=== PATIENT | male | born 1955 | race Caucasian/White ===

== ENCOUNTER 2022-07-07 12:02 | Emergency (ER) | payer BC ==
[2022-07-07 12:08] VITALS: TEMP 98.6
[2022-07-07] MEDS ORDERED: HYDROmorphone 0.5 MG/0.5 ML SYRINGE IVP STA ×2 (12:19→13:01)
[2022-07-07] MEDS ORDERED: SODIUM CHLORIDE 0.9% 1,000 ML IV STA (12:19)
[2022-07-07] MEDS ORDERED: KETOROLAC 15 MG/ML 1 ML VIAL IVP STA (12:20)
[2022-07-07] MEDS ORDERED: ONDANSETRON 4 MG/2 ML VIAL IVP STA (12:29)
[2022-07-07 12:34] LABS: Basophils % (A) 0 %; Eosinophils % (A) 0 %; HCT 48.4 % (39.0-53.0); Lymphocytes # (A) 1.7 k/uL (1.0-4.8); Lymphocytes % (A) 17 %; MCH 30.6 pg (25.0-35.0); MCV 87.3 fL (80.0-100.0); Mean Platelet Volume 8.7; Monocytes # (A) 0.4 k/uL (0-1.0); Monocytes % (A) 4 %; Neutrophils # (A) 7.9 k/uL (1.3-7.7); Neutrophils % (A) 78 %; Platelet Count 198 k/uL (150-450); RBC 5.55 m/uL (4.30-5.90); RDW 12.7 % (11.5-15.5); WBC 10.1 k/uL (3.8-10.6)
[2022-07-07 12:58] LABS: Calcium 9.2 mg/dL (8.4-10.2); Total Bilirubin 1.9 mg/dL (0.2-1.3); Total Protein 8.3 g/dL (6.3-8.2)
[2022-07-07 13:02] VITALS: RESP 18
--- NOTE | 2022-07-07 13:08 | ED ---
General Adult HPI - General Chief complaint: Abdominal Pain Stated complaint: Abd Pain Time Seen by Provider: 07/07/22 12:15 Source: patient, RN notes reviewed, old records reviewed Mode of arrival: ambulatory Limitations: no limitations - History of Present Illness Initial comments: This is a 67-year-old male presents emergency Department complaining of right- sided abdominal pain. Patient states more in the lower right than the upper right. Patient states she's had 4 days pain. Patient states yesterday he about 6 hour period where there didn't feel like there was much pain at all. Patient states she's been very nauseated has vomited. Patient denies any diarrhea. Patient denies any fever chills. Patient denies any chest pain difficulty br eathing shortness of breath per patient denies any back pain. Patient denies any dysuria hematuria urinary frequency. Patient denies headache patient denies numbness weakness. Patient states the car ride over was painful when he hit bumps. - Related Data Previous Rx's Medication Instructions Recorded Ketorolac [Toradol] 10 mg PO Q6HR #15 tab 07/07/22 Tamsulosin [Flomax] 0.4 mg PO DAILY #10 cap 07/07/22 Allergies Allergy/AdvReac Type Severity Reaction Status Date / Time No Known Allergies Allergy Verified 07/07/22 12:08 Review of Systems ROS Statement: Those systems with pertinent positive or pertinent negative responses have been documented in the HPI. ROS Other: All systems not noted in ROS Statement are negative. Past Medical History Past Medical History: No Reported History History of Any Multi-Drug Resistant Organisms: None Reported Past Surgical History: No Surgical Hx Reported Past Psychological History: No Psychological Hx Reported Smoking Status: Current every day smoker Past Alcohol Use History: Occasional Past Drug Use History: None Reported General Exam - General Exam Comments Initial Comments: GENERAL: Patient is well-developed and well-nourished. Patient is nontoxic and well- hydrated and is in moderate distress. ENT: Neck is soft and supple. No significant lymphadenopathy is noted. Oropharynx is clear. Moist mucous membranes. Neck has full range of motion without eliciting any pain. EYES: The sclera were anicteric and conjunctiva were pink and moist. Extraocular movements were intact and pupils were equal round and reactive to light. Eyelids were unremarkable. PULMONARY: Unlabored respirations. Good breath sounds bilaterally. No audible rales rhonchi or wheezing was noted. CARDIOVASCULAR: There is a regular rate and rhythm without any murmurs gallops or rubs. ABDOMEN: Patient has significant tenderness and right lower quadrant and has having rebound SKIN: Skin is clear with no lesions or rashes and otherwise unremarkable. NEUROLOGIC: Patient is alert and oriented x3. Cranial nerves II through XII are grossly intact. Motor and sensory are also intact. Normal speech, volume and content. Symmetrical smile. MUSCULOSKELETAL: Normal extremities with adequate strength and full range of motion. LYMPHATICS: No significant lymphadenopathy is noted PSYCHIATRIC: Normal psychiatric evaluation. Limitations: no limitations Course Vital Signs 07/07/22 07/07/22 12:06 13:02 Temperature 98.6 F Pulse Rate 83 90 Respiratory 20 18 Rate Blood Pressure 184/102 166/83 O2 Sat by Pulse 100 95 Oximetry Medical Decision Making - Medical Decision Making I interpreted the EKG. EKG shows sinus rhythm at 77 bpm NH interval is on a 68 QRSs 118 QT interval 398 QTC is 4:30. Patient's EKG shows no ST segment elevation or depression. I did the CT of the abdomen. It does show a 4 mm stone on the right with significant hydronephrosis and hydroureter. I went back and reevaluated the patient he was no longer having any pain. - Lab Data Result diagrams: 07/07/22 12:26 07/07/22 12:26 Lab Results 07/07/22 07/07/22 07/07/22 Range/Units 12:26 12:26 12:26 WBC 10.1 (3.8-10.6) k/uL RBC 5.55 (4.30-5.90) m/uL Hgb 17.0 (13.0-17.5) gm/dL Hct 48.4 (39.0-53.0) % MCV 87.3 (80.0-100.0) fL MCH 30.6 (25.0-35.0) pg MCHC 35.0 (31.0-37.0) g/dL RDW 12.7 (11.5-15.5) % Plt Count 198 (150-450) k/uL MPV 8.7 Neutrophils % 78 % Lymphocytes % 17 % Monocytes % 4 % Eosinophils % 0 % Basophils % 0 % Neutrophils # 7.9 H (1.3-7.7) k/uL Lymphocytes # 1.7 (1.0-4.8) k/uL Monocytes # 0.4 (0-1.0) k/uL Eosinophils # 0.0 (0-0.7) k/uL Basophils # 0.0 (0-0.2) k/uL Sodium 137 (137-145) mmol/L Potassium 4.0 (3.5-5.1) mmol/L Chloride 101 (98-107) mmol/L Carbon Dioxide 21 L (22-30) mmol/L Anion Gap 15 mmol/L BUN 22 H (9-20) mg/dL Creatinine 1.54 H (0.66-1.25) mg/dL Est GFR (CKD-EPI)AfAm 53 (>60 ml/min/1.73 sqM) Est GFR (CKD-EPI)NonAf 46 (>60 ml/min/1.73 sqM) Glucose 250 H (74-99) mg/dL Plasma Lactic Acid Mike 2.1 H* (0.7-2.0) mmol/L Calcium 9.2 (8.4-10.2) mg/dL Total Bilirubin 1.9 H (0.2-1.3) mg/dL AST 22 (17-59) U/L ALT 24 (4-49) U/L Alkaline Phosphatase 90 (38-126) U/L Total Protein 8.3 H (6.3-8.2) g/dL Albumin 5.0 (3.5-5.0) g/dL Amylase 63 (30-110) U/L Lipase 129 (23-300) U/L Disposition Clinical Impression: Kidney stone Disposition: HOME SELF-CARE Condition: Good Instructions (If sedation given, give patient instructions): Kidney Stones (ED) Prescriptions: Tamsulosin [Flomax] 0.4 mg PO DAILY #10 cap Ketorolac [Toradol] 10 mg PO Q6HR #15 tab Is patient prescribed a controlled substance at d/c from ED?: No Referrals: Brant Cole DO [Primary Care Provider] - 1-2 days Time of Disposition: 14:19
--- NOTE | 2022-07-07 13:13 | CT ---
EXAMINATION TYPE: CT abdomen pelvis w con DATE OF EXAM: 07/07/2022 COMPARISON: None HISTORY: RLQ pain CT DLP: 1506.2 mGycm, Automated Exposure Control for Dose Reduction was Utilized. CONTRAST: CT scan of the abdomen and pelvis is performed without oral but with IV Contrast, patient injected wi th 100 mL of Isovue 300. FINDINGS: LUNG BASES: No significant abnormality is appreciated. LIVER/GB: Visualized liver heterogeneously hypodense suggesting diffuse fatty infiltration. PANCREAS: No significant abnormality is seen. SPLEEN: No significant abnormality is seen. ADRENALS: No significant abnormality is seen. KIDNEYS: There is 4 mm calculus in the distal right ureter axial image 81 causing asymmetric mild-to- moderate right-sided hydronephrosis. No delayed excretion noted. Incidental 1.6 cm simple round thin- walled cyst posteriorly midpole level right kidney delayed image 45. No definitive additional right-s ided renal calculi. There are 3 nonobstructing left renal calculi measuring near 2 mm for reference to adjacent are seen lower pole level coronal image 62. No left-sided hydronephrosis or obstructing ureteral calculi. No i ntraluminal calculi in the bladder. BOWEL: Small size hiatal hernia. Slightly suboptimal study without oral contrast. No suspicious small or large bowel dilatation is seen. Terminal ileum appears within normal limits coronal image 35. Nor mal or abnormal appendix not identified suggesting prior appendectomy. No fat stranding at this level noted. PROSTATE/SEMINAL VESICLES: Mildly enlarged prostate consistent with BPH. LYMPH NODES: No greater than 1cm abdominal or pelvic lymph nodes are appreciated. OSSEOUS STRUCTURES: Straightening of lumbar spine with multilevel slight spondylolisthesis or retroli sthesis. [id number] multilevel disc space narrowing and spurring. More moderate to severe disc space narrowing lumbosacral junction with vacuum disc phenomenon. Moderate axial joint space loss bot h hips. OTHER: Small to tiny fat-containing right inguinal hernia. Small fat-containing umbilical hernia. IMPRESSION: There is 4 mm calculus in the distal right ureter causing [id number] right-sided hy dronephrosis but no delayed excretion.
[2022-07-07] MEDS ORDERED: ACET/COD 300 MG/30 MG STARTER PACK 6 TAB BTL PO STA (14:20)
[2022-07-07 14:32] LABS: Appearance,Urine Clear (Clear); Bilirubin,Urine Negative (Negative); Blood,Urine Large (Negative); Color,Urine Light Yellow; Glucose,Urine (UA) 4+ (Negative); Leukocyte Esterase,Urine Negative (Negative); Mucus,Urine Rare /hpf; Nitrite,Urine Negative (Negative); PH, Urine 5.5 (5.0-8.0); Protein,Urine Negative (Negative); RBC,Urine 67 /hpf (0-5); Specific Gravity,Urine 1.045 (1.001-1.035); Squamous Epithelial Cell,Urine 1 /hpf (0-4); Urobilinogen,Urine <2.0 mg/dL (<2.0); WBC,Urine 2 /hpf (0-5)
[2022-07-07 14:37] VITALS: BP 139/88; PULSE 87
[2022-07-07 15:25] LABS: Ketones,Urine 2+ (Negative)
== END 2022-07-07 14:37 | disposition home or self-care (01) ==
LOC: EC 12:02
DX: N20.0 Calculus of kidney (principal); F17.200 Nicotine dependence, unspecified, uncomplicated
CPT/HCPCS: 96374; 99285; 36415; 93005; 80053; 82150; 83605; 83690; 85025; 81001; 74177; 96375 ×2; 96376; 96361; J2405; J1885; J1170; Q9967